=== PATIENT | male | born 1980 | race Caucasian/White ===

== ENCOUNTER → 2016-07-04 | Outpatient (REF) | payer OTHER ==
[~2016-07-04] MED LIST: AUGM875T27 PO; EXCETAB80 PO; NORCOTAB PO; VITA50003 PO
[2016-07-04 14:07] LABS: BASO % 0.5 % (0.0-1.0); EOS # 0.2 K/mm3 (0.0-0.50); EOS % 3.6 % (0.0-3.0); LARGE UNSTAINED CELL # 0.1 K/mm3 (0.0-0.4); LARGE UNSTAINED CELL % 2.9 % (0.0-4.0); LYMPH # 1.3 K/mm3 (1.5-4.5); LYMPH % 30.8 % (24.0-44.0); MEAN CORPUSCULAR HGB CONC 33.7 g/dl (32.0-36.5); MEAN CORPUSCULAR VOLUME 89.1 fl (80.0-96.0); MONO # 0.2 K/mm3 (0.0-0.8); MONO % 5.7 % (0.0-5.0); NEUTROPHILS # 2.3 K/mm3 (1.8-7.7); NEUTROPHILS % 56.5 % (36.0-66.0); PLATELET COUNT, AUTOMATED 258 k/mm3 (150-450); RED CELL DISTRIBUTION WIDTH 12.7 % (11.5-14.5); WHITE BLOOD COUNT 4.1 K/mm3 (4.0-10.0)
[2016-07-04 15:27] LABS: ERYTHROCYTE SEDIMENTATION RATE 6 mm/hr (0-15)
== END | disposition home or self-care (01) ==
LOC: M LABNEURO 13:39
PROVIDERS: ATTEND Physician Assistant Medical
DX: R51 Headache (principal); R42 Dizziness and giddiness

== ENCOUNTER → 2016-08-21 | Outpatient (CLI) | payer OTHER ==
[~2016-08-21] VITALS: Ht 177.8 cm; Wt 63.5 kg
[~2016-08-21] MED LIST changes: +LIDOCAINE 2% INJ 100 MG/5 ML SDV (FOR ANES.) As Ordered ONE; +NS 1,000 ML IV SCH; +PROPOFOL 200 MG/20 ML VIAL As Ordered ONE; +SUMA6INJ16 SC; +TOPA100T8 PO; +VERA240T6 PO; +VERA40TA PO; +VITA100037 PO; +VITA100072 PO
--- NOTE | 2016-08-21 16:13 | ROOR ---
Patient Name: Ray Calvin Procedure Date: 08/21/2016 3:56 PM Date of : 1980 Age: 35 Room: [id number] Gender: Male Note Status: Finalized Procedure: Colonoscopy Indications: Generalized abdominal pain, Hematochezia, Change in bowel habits, Constipation, On motility inhibiying meds, resolved after startinf fiber supplement and prn laxative. Providers: Micheal SHARIF MD Referring MD: [facility], Admin. Requesting Provider: Medicines: Monitored Anesthesia Care Complications: No immediate complications. Procedure: Pre-Anesthesia Assessment: - The heart rate, respiratory rate, oxygen saturations, blood pressure, adequacy of pulmonary ventilation, and response to care were monitored throughout the procedure. The Colonoscope was introduced through the anus and advanced to 5 cm into the ileum. The colonoscopy was performed without difficulty. The patient tolerated the procedure well. The quality of the bowel preparation was good. Findings: The perianal and digital rectal examinations were normal. (Exam: Complete, Prep: Good or Excellent.) The terminal ileum appeared normal. The entire examined colon appeared normal on direct and retroflexion views. (long/redundant) Internal hemorrhoids were found during retroflexion. The hemorrhoids were small. Impression: - Small Internal hemorrhoids. - The examined portion of the ileum was normal. - The entire examined colon is normal on direct and retroflexion views. - No specimens collected. Recommendation: - Use fiber, for example Citrucel, Fibercon, Konsyl or Metamucil. - -Observe clinical course. Use Miralax 17 gm once a day to twice a day for recurrnt symptoms. Micheal Sharif MD Micheal SHARIF MD 08/21/2016 4:13:01 PM This report has been signed electronically. Number of Addenda: 0 Note Initiated On: 08/21/2016 3:56 PM Estimated Blood Loss: Estimated blood loss: none.
[2016-08-21 16:40] VITALS: BP 110/67
== END ==
LOC: M OPP 13:18
PROVIDERS: ATTEND Internal Medicine Gastroenterology
DX: R10.84 Generalized abdominal pain (principal); K92.1 Melena; R19.4 Change in bowel habit; K64.8 Other hemorrhoids; G43.909 Migraine, unspecified, not intractable, without status migrainosus; F32.9 Major depressive disorder, single episode, unspecified; I72.9 Aneurysm of unspecified site; Z79.899 Other long term (current) drug therapy

== ENCOUNTER → 2018-05-31 | Outpatient (REF) | payer OTHER ==
[~2018-05-31] MED LIST changes: -AUGM875T27 PO; +AUGM875T28 PO; -LIDOCAINE 2% INJ 100 MG/5 ML SDV (FOR ANES.) As Ordered ONE; -NS 1,000 ML IV SCH; -PROPOFOL 200 MG/20 ML VIAL As Ordered ONE; +TOPA100T12 PO; -TOPA100T8 PO; -VITA100037 PO; +VITA100067 PO; -VITA50003 PO; +VITA50005 PO
== END ==
LOC: M SFHCLERA 14:44
PROVIDERS: ATTEND Physician Assistant
DX: J20.9 Acute bronchitis, unspecified (principal)

== ENCOUNTER → 2019-04-27 | Outpatient (REF) | payer OTHER ==
[~2019-04-27] MED LIST changes: +HYDR-3715 PO; -NORCOTAB PO; +VITA100018 PO; -VITA100072 PO
[2019-04-27 13:11] LABS: BASO % 0.4 % (0.0-1.0); EOS # 0.1 10^3/uL (0.0-0.5); EOS % 1.3 % (0.0-3.0); HEMATOCRIT 44.8 % (42.0-52.0); HEMOGLOBIN 14.4 g/dl (13.5-17.5); LYMPH # 1.9 10^3/uL (1.5-5.0); LYMPH % 40.2 % (24.0-44.0); MEAN CORPUSCULAR HEMOGLOBIN 29.7 pg (27.0-33.0); MEAN CORPUSCULAR HGB CONC 32.1 g/dl (32.0-36.5); MEAN CORPUSCULAR VOLUME 92.4 fl (80.0-96.0); MONO # 0.4 10^3/uL (0.0-0.8); MONO % 9.3 % (0.0-5.0); NEUTROPHILS # 2.3 10^3/uL (1.5-8.5); NEUTROPHILS % 48.6 % (36.0-66.0); PLATELET COUNT, AUTOMATED 263 10^3/uL (150-450); RED BLOOD COUNT 4.85 10^6/uL (4.30-6.10); WHITE BLOOD COUNT 4.8 10^3/uL (4.0-10.0)
[2019-04-27 13:29] LABS: ALBUMIN 3.9 GM/DL (3.2-5.2); ALT/SGPT 42 U/L (12-78); BILIRUBIN,TOTAL 0.4 MG/DL (0.2-1.0); BLOOD UREA NITROGEN 12 MG/DL (7-18); CALCIUM LEVEL 8.6 MG/DL (8.5-10.1); CARBON DIOXIDE LEVEL 30 MEQ/L (21-32); CHLORIDE LEVEL 108 MEQ/L (98-107); CHOLESTEROL LEVEL 193 MG/DL (<200); CHOLESTEROL RISK RATIO 3.938 (<5); GLOMERULAR FILTRATION RATE > 60.0 (>60); GLUCOSE, FASTING 86 MG/DL (70-100); HDL CHOLESTEROL 49 MG/DL (>40); LDL CHOLESTEROL 131 MG/DL (<100); NON-HDL-C 144 MG/DL; POTASSIUM SERUM 4.1 MEQ/L (3.5-5.1); SODIUM LEVEL 143 MEQ/L (136-145); TRIGLYCERIDES LEVEL 66 MG/DL (<150)
== END ==
LOC: M SFHCADAM 08:02
PROVIDERS: ATTEND Family Medicine
DX: Z00.00 Encounter for general adult medical examination without abnormal findings (principal)

== ENCOUNTER → 2019-07-07 | Outpatient (CLI) | payer OTHER ==
--- NOTE | 2019-07-07 17:54 | REP ---
Right rib series: Five views including PA chest. History: Right rib pain. Findings: PA chest radiograph is normal. There is no evidence of pneumothorax or hydrothorax. Mediastinum is not widened. Pulmonary vasculature is not increased. Multiple views of the right ribcage show no evidence of rib fracture or bony destructive lesion. Impression: Negative right rib series. No fracture or bony destructive lesion seen. Electronically Signed by Minor Silva MD 07/07/2019 05:46 P
== END ==
LOC: M LRY 17:01
PROVIDERS: ATTEND Nurse Practitioner Family
DX: R07.81 Pleurodynia (principal)

== ENCOUNTER → 2019-08-15 | Outpatient (REF) | payer OTHER ==
[~2019-08-15] MED LIST changes: +AUGM0.05 TOP; +EXCETAB33 PO; +VITAD1000T PO
[2019-08-15 13:43] LABS: HEMATOCRIT 41.7 % (42.0-52.0); MEAN CORPUSCULAR HEMOGLOBIN 29.8 pg (27.0-33.0); MEAN CORPUSCULAR HGB CONC 33.6 g/dl (32.0-36.5); MEAN CORPUSCULAR VOLUME 88.7 fl (80.0-96.0); PLATELET COUNT, AUTOMATED 259 10^3/uL (150-450); WHITE BLOOD COUNT 4.3 10^3/uL (4.0-10.0)
[2019-08-15 13:53] LABS: BLOOD UREA NITROGEN 14 MG/DL (7-18); CALCIUM LEVEL 9.2 MG/DL (8.5-10.1); CARBON DIOXIDE LEVEL 31 MEQ/L (21-32); CHLORIDE LEVEL 105 MEQ/L (98-107); CREATININE FOR GFR 0.97 MG/DL (0.70-1.30); GLOMERULAR FILTRATION RATE > 60.0 (>60); GLUCOSE, FASTING 91 MG/DL (70-100); POTASSIUM SERUM 4.1 MEQ/L (3.5-5.1); SODIUM LEVEL 141 MEQ/L (136-145)
== END ==
LOC: M LABDRWAD 12:35 → M SMT 12:35
PROVIDERS: ATTEND Urology
DX: N47.1 Phimosis (principal); Z01.818 Encounter for other preprocedural examination

== ENCOUNTER 2019-08-18 09:31 | Day surgery (SDC) | payer OTHER ==
[~2019-08-18] VITALS: Ht 177.8 cm; Wt 75.7 kg
[~2019-08-18 09:31] MED LIST changes: +ACETAMINOPHEN 1000MG 100ML IV BTL (OFIRMEV) (J0131 PER 10MG) As Ordered ONE; +LIDOCAINE 2% INJ 100 MG/5 ML SDV (FOR ANES.) As Ordered ONE; +LR 1,000 ML IV ONE; +MIDAZOLAM INJ 2 MG/2 ML VIAL (J2250) As Ordered ONE; +ONDANSETRON 4MG/2ML VIAL (J2405) As Ordered ONE; +PHENYLephrine HCL 500 MCG/5 ML (100MCG/ML) SYRINGE (J2370) As Ordered ONE; +ceFAZolin SOD 2 GM in IV 1 EA IV ONE; +dexameTHASONE 4 MG/ML 1ML VIAL (J1100) As Ordered ONE; +ePHEDrine SULFATE 25 MG/5 ML(5MG/ML) SYRINGE As Ordered ONE; +fentaNYL 100 MCG/2 ML INJECTION (J3010) As Ordered ONE; +propofoL 200 MG/20 ML VIAL As Ordered ONE
[2019-08-18] MEDS ORDERED: LIDOCAINE 5% OINT 30 GM As Ordered ONE (10:08)
[2019-08-18] MEDS ORDERED: LIDOCAINE 1% SDV INJ 30 ML VIAL As Ordered ONE (10:09)
[2019-08-18] MEDS ORDERED: BUPIVACAINE HCL 0.25% 30 ML VIAL As Ordered ONE (10:34)
[2019-08-18] MEDS ORDERED: PERCOCET 5MG/325MG TAB PO PRN (12:15)
[2019-08-18] MEDS ORDERED: ONDANSETRON 4MG/2ML VIAL (J2405) IV PRN (12:15)
[2019-08-18] MEDS ORDERED: LR 1,000 ML IV SCH ×2 (12:15→13:16)
[2019-08-18] MEDS ORDERED: fentaNYL 100 MCG/2 ML INJECTION (J3010) IV PRN (12:15)
[2019-08-18 13:35] VITALS: BP 128/79
--- NOTE | 2019-08-19 22:57 | RO ---
DATE OF PROCEDURE: 08/18/2019 PREPROCEDURE DIAGNOSIS: Phimosis. POSTPROCEDURE DIAGNOSIS: Phimosis. PROCEDURE: Circumcision. SURGEON: Dr. [place] CRIB ATTENDANT: ANESTHESIA: General. INDICATION FOR OPERATION: This is a 38-year-old white male who was seen in the clinic for phimosis. He was, therefore, brought to the operating room for circumcision. DESCRIPTION OF PROCEDURE: The patient was anesthetized with general anesthesia, prepped with Betadine paint, and draped in a sterile manner. Time-out was then performed. The foreskin was retracted and the glans was examined. The foreskin was then reduced and clamped on the lateral edges. An incision line was then marked with a pen on the distal shaft of the penis. A clamp line was then made in the dorsal surface and cut. A line was then also marked on the mucosal surface of the foreskin. The foreskin was then incised along these markings and removed using Bovie cautery. Hemostasis was achieved with cauterization and #3-0 chromic ties. The skin edges were then approximated with #3-0 chromic sutures using interrupted stitch. The penis was then anesthetized with 0.25% Marcaine without epinephrine and Xylocaine ointment was applied to the incision line. A dressing of Xeroform and Kerlix was then applied, and the patient was awakened and sent to recovery room in stable condition, having tolerated procedure well.
== END 2019-08-18 13:53 | disposition home or self-care (01) ==
LOC: M SDC 09:31
PROVIDERS: ATTEND Urology
DX: N47.1 Phimosis (principal); I67.1 Cerebral aneurysm, nonruptured; K59.00 Constipation, unspecified; R19.7 Diarrhea, unspecified; F32.9 Major depressive disorder, single episode, unspecified; G43.909 Migraine, unspecified, not intractable, without status migrainosus; Z79.899 Other long term (current) drug therapy
CPT/HCPCS: 54150; 88304; J0131; J0690; J1100; J2250; J2370; J2405; J3010

== ENCOUNTER → 2020-10-19 | Outpatient (REF) | payer OTHER ==
[~2020-10-19] MED LIST changes: -ACETAMINOPHEN 1000MG 100ML IV BTL (OFIRMEV) (J0131 PER 10MG) As Ordered ONE; +D31000TA2 PO; -LIDOCAINE 2% INJ 100 MG/5 ML SDV (FOR ANES.) As Ordered ONE; -LR 1,000 ML IV ONE; -MIDAZOLAM INJ 2 MG/2 ML VIAL (J2250) As Ordered ONE; -ONDANSETRON 4MG/2ML VIAL (J2405) As Ordered ONE; -PHENYLephrine HCL 500 MCG/5 ML (100MCG/ML) SYRINGE (J2370) As Ordered ONE; -VITAD1000T PO; -ceFAZolin SOD 2 GM in IV 1 EA IV ONE; -dexameTHASONE 4 MG/ML 1ML VIAL (J1100) As Ordered ONE; -ePHEDrine SULFATE 25 MG/5 ML(5MG/ML) SYRINGE As Ordered ONE; -fentaNYL 100 MCG/2 ML INJECTION (J3010) As Ordered ONE; -propofoL 200 MG/20 ML VIAL As Ordered ONE
[2020-10-19 13:33] LABS: APPEARANCE, URINE CLEAR (CLEAR); BACTERIA, URINE AUTO NEGATIVE (NEGATIVE); BILIRUBIN, URINE AUTO NEGATIVE (NEGATIVE); BLOOD, URINE BLOOD NEGATIVE (NEGATIVE); COLOR, URINE YELLOW (YELLOW); GLUCOSE, URINE (UA) AUTO NEGATIVE (NEGATIVE); KETONE, URINE AUTO NEGATIVE (NEGATIVE); LEUKOCYTE ESTERASE, URINE AUTO NEGATIVE (NEGATIVE); MUCUS, URINE SMALL (NEGATIVE); NITRITE, URINE AUTO NEGATIVE (NEGATIVE); PROTEIN, URINE AUTO NEGATIVE (NEGATIVE); RBC, URINE AUTO 2 /HPF (0-3); SPECIFIC GRAVITY URINE AUTO 1.025 (1.002-1.035); SQUAMOUS EPITHELIAL CELL UR AU 0 /HPF (0-6); UROBILINOGEN, URINE AUTO 0.2 mg/dL (0.0-2.0); WBC, URINE AUTO 1 /HPF (0-3)
== END ==
LOC: M SFHCADAM 12:40
PROVIDERS: ATTEND Family Medicine
DX: R10.2 Pelvic and perineal pain (principal)

== ENCOUNTER → 2020-11-09 | Outpatient (REF) | payer OTHER ==
[2020-11-09 17:41] LABS: APPEARANCE, URINE CLEAR (CLEAR); BACTERIA, URINE AUTO NEGATIVE (NEGATIVE); BILIRUBIN, URINE AUTO NEGATIVE (NEGATIVE); BLOOD, URINE BLOOD 1+ (NEGATIVE); COLOR, URINE YELLOW (YELLOW); GLUCOSE, URINE (UA) AUTO NEGATIVE (NEGATIVE); KETONE, URINE AUTO NEGATIVE (NEGATIVE); LEUKOCYTE ESTERASE, URINE AUTO NEGATIVE (NEGATIVE); MUCUS, URINE SMALL (NEGATIVE); NITRITE, URINE AUTO NEGATIVE (NEGATIVE); PROTEIN, URINE AUTO NEGATIVE (NEGATIVE); RBC, URINE AUTO 0 /HPF (0-3); SPECIFIC GRAVITY URINE AUTO 1.021 (1.002-1.035); SQUAMOUS EPITHELIAL CELL UR AU 0 /HPF (0-6); WBC, URINE AUTO 1 /HPF (0-3)
== END ==
LOC: M SMT 16:50
PROVIDERS: ATTEND Nurse Practitioner Family
DX: N53.12 Painful ejaculation (principal)

== ENCOUNTER → 2021-09-25 | Outpatient (CLI) | payer OTHER ==
[~2021-09-25] MED LIST changes: -D31000TA2 PO; -SUMA6INJ16 SC; +SUMA6INJ25 SC; +VITA100093 PO
== END ==
LOC: M ADAMS 09:27
PROVIDERS: ATTEND Family Medicine
DX: R05.9 Cough, unspecified (principal)

== ENCOUNTER → 2022-04-18 | Outpatient (CLI) | payer OTHER ==
[~2022-04-18] MED LIST changes: +EXCETAB32 PO; -EXCETAB33 PO
== END ==
LOC: M RAD 07:14
PROVIDERS: ATTEND Physician Assistant
DX: S82.402A Unspecified fracture of shaft of left fibula, initial encounter for closed fracture (principal); W18.30XA Fall on same level, unspecified, initial encounter; Y92.009 Unspecified place in unspecified non-institutional (private) residence as the place of occurrence of the external cause